=== PATIENT | male | born 1975 | race Caucasian/White ===

== ENCOUNTER → 2020-08-23 16:09 | Outpatient (CLI) | payer OTHER, SELFPAY ==
--- NOTE | ~2020-08-23 | XR_ITS ---
EXAMINATION: XR chest 2V DATE: 08/23/2020 16:49 INDICATION: Chronic cough TECHNIQUE: PA and lateral views of the chest are obtained. COMPARISON: None available FINDINGS: The lungs are free of acute opacities. There is no pleural effusion or pneumothorax. The ca rdiomediastinal silhouette is normal. The visualized bones and soft tissues are unremarkable. IMPRESSION: 1. No acute cardiopulmonary abnormality. Reviewed, dictated and finalized at location A.
== END ==
DX: R05 Cough (principal)
CPT/HCPCS: 71046

== ENCOUNTER 2022-07-29 08:10 | Emergency (ER) | payer OTHER, SELFPAY ==
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
[2022-07-29 08:30] VITALS: BP 169/90; PULSE 71; RESP 18; TEMP 36.8; O2SAT 99
--- NOTE | 2022-07-29 09:10 | PC.NURSE ---
Patient placed in C-collar due to c/o posterior neck pain with movement.
--- NOTE | 2022-07-29 09:22 | PC.NURSE ---
EDP at bedside to assess pt.
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
[2022-07-29 10:36] VITALS: BP 160/110; PULSE 74; RESP 15; O2SAT 100
== END 2022-07-29 10:39 | disposition home or self-care (01) ==
PROVIDERS: Emergency Provider Physician Assistant
DX: S16.1XXA Strain of muscle, fascia and tendon at neck level, initial encounter (principal); M47.812 Spondylosis without myelopathy or radiculopathy, cervical region; M47.814 Spondylosis without myelopathy or radiculopathy, thoracic region; V49.40XA Driver injured in collision with unspecified motor vehicles in traffic accident, initial encounter
CPT/HCPCS: 71046; 71110; 72125; 72128; 99284; L0140

== ENCOUNTER 2022-07-29 09:38 | Emergency (ER) | payer OTHER, SELFPAY | END 2022-07-29 09:40 | disposition left against medical advice (07) | DX: Z53.21 Procedure and treatment not carried out due to patient leaving prior to being seen by health care provider (principal) | CPT/HCPCS: 99199 ==